=== PATIENT | female | born 1985 | race Caucasian/White ===

== ENCOUNTER 2017-05-28 19:08 | Inpatient (IN) | payer BC ==
[2017-05-28] MEDS ORDERED: Carboprost Tromethamine 250 MCG/1 ML Amp IM PRN (20:13)
[2017-05-28] MEDS ORDERED: Sodium Chloride 0.9% 2.5 ML Syringe FLUSH PRN (20:13)
[2017-05-28] MEDS ORDERED: Terbutaline 1 MG/ML SDV SUBCUT PRN (20:13)
[2017-05-28] MEDS ORDERED: Water For Irrigation,Sterile 1,000 ML Container IRR PRN (20:13)
[2017-05-28] MEDS ORDERED: Tranexamic Acid 1,000 MG in Sodium Chloride 0.9% 100 ML IV PRN (20:13)
[2017-05-28] MEDS ORDERED: Sodium Chloride 0.9% 10 ML Syringe FLUSH PRN (20:13)
[2017-05-28] MEDS ORDERED: Lidocaine 1% 50 ML MDV INJECT PRN (20:13)
[2017-05-28] MEDS ORDERED: Butorphanol 1 MG/ML SDV IVPUSH PRN (20:13)
[2017-05-28] MEDS ORDERED: Methylergonovine 0.2 MG/1 ML Amp IM PRN (20:13)
[2017-05-28] MEDS ORDERED: Misoprostol 200 MCG Tab PO PRN (20:13)
[2017-05-28] MEDS ORDERED: Oxytocin/0.9 % Sodium Chloride 30 UNIT/500 ML BAG IV SCH ×2 (20:15)
[2017-05-28] MEDS: Lactated Ringers 1,000 ML IV SCH (20:36)
[2017-05-28] MEDS: Misoprostol 25 MCG (1/4 of 100 MCG) Tab VAG PRN (20:41)
[2017-05-29] MEDS: Misoprostol 25 MCG (1/4 of 100 MCG) Tab VAG PRN (01:52)
[2017-05-29] MEDS: Nalbuphine 10 MG/1 ML Vial IVPUSH PRN ×2 (04:00→06:45)
[2017-05-29] MEDS: Lactated Ringers 1,000 ML IV SCH ×2 (08:24→09:12)
--- NOTE | 2017-05-29 08:52 | PCM.PREANE ---
Preanesthetic Assessment - Anesthesia/Transfusion/Family Hx Anesthesia History: Prior Anesthesia Without Reaction Family History of Anesthesia Reaction: No Transfusion History: No Prior Transfusion(s) - Physical Assessment Height: 1.6 m Weight: 97.069 kg ASA Class: 1 - Lab Values: Laboratory Last Values WBC 10.90 K/uL (4.0-11.0) 05/28/17 20:25 RBC 4.27 M/uL (4.30-5.90) L 05/28/17 20:25 Hgb 13.0 g/dL (12.0-16.0) 05/28/17 20:25 Hct 38.5 % (36.0-46.0) 05/28/17 20:25 MCV 90.2 fL (80.0-98.0) 05/28/17 20:25 MCH 30.4 pg (27.0-32.0) 05/28/17 20:25 MCHC 33.8 g/dL (31.0-37.0) 05/28/17 20:25 RDW Std Deviation 47.5 fl (28.0-62.0) 05/28/17 20:25 RDW Coeff of Rasheed 15 % (11.0-15.0) 05/28/17 20:25 Plt Count 223 K/uL (150-400) 05/28/17 20:25 MPV 9.50 fL (7.40-12.00) 05/28/17 20:25 Nucleated RBC % 0.0 /100WBC 05/28/17 20:25 Nucleated RBCs # 0 K/uL 05/28/17 20:25 Blood Type A POSITIVE 05/28/17 20:25 Antibody Screen NEGATIVE 05/28/17 20:25 - Allergies Allergies/Adverse Reactions: Allergies Allergy/AdvReac Type Severity Reaction Status Date / Time acetaminophen [From Tylenol] Allergy Difficulty Verified 05/28/17 20:13 Breathing - Acknowledgements Anesthesia Type Planned: Epidural Pt an Appropriate Candidate for the Planned Anesthesia: Yes Alternatives and Risks of Anesthesia Discussed w Pt/Guardian: Yes Pt/Guardian Understands and Agrees with Anesthesia Plan: Yes 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: Dermatologic History: Reports: Other (See Below) Other Dermatologic History: fatty tumor removal on left shoulder - Past Surgical History HEENT Surgical History: Reports: Tonsillectomy, Other (See Below) Other HEENT Surgeries/Procedures: wisdom tooth extraction - SUBSTANCE USE Smoking Status *Q: Never Smoker Second Hand Smoke Exposure: No Days Per Week of Alcohol Use: 1 Number of Drinks Per Day: 1 Total Drinks Per Week: 1 Recreational Drug Use History: No - CURRENT (IN HOUSE) MEDS Current Meds: Current Medications Butorphanol Tartrate (Stadol) 1 mg IVPUSH ASDIRECTED PRN PRN Reason: Pain Carboprost Tromethamine (Hemabate Ds) 250 mcg IM ASDIRECTED PRN PRN Reason: Post Hemorrhage Lactated Ringer's (Ringers, Lactated) 1,000 mls @ 150 mls/hr IV ASDIRECTED MATILDE Last Admin: 05/29/17 08:24 Dose: 150 mls/hr Oxytocin/Sodium Chloride (Oxytocin 30 Unit/500 Ml-Ns) 30 unit in 500 mls @ 999 mls/hr IV ASDIRECTED MATILDE Oxytocin/Sodium Chloride (Oxytocin 30 Unit/500 Ml-Ns) 30 unit in 500 mls @ 2 mls/hr IV TITRATE MATILDE; Protocol Tranexamic Acid 1,000 mg/ (Sodium Chloride) 110 mls @ 660 mls/hr IV ONETIME PRN PRN Reason: Bleeding Lidocaine HCl (Xylocaine 1%) 50 ml INJECT .ONCE PRN PRN Reason: Laceration repair Methylergonovine Maleate (Methergine) 0.2 mg IM ASDIRECTED PRN PRN Reason: Post Hemorrhage Misoprostol (Cytotec) 200 mcg PO .ONCE PRN PRN Reason: Post Hemorrhage Misoprostol (Cytotec) 25 mcg VAG Q4H PRN PRN Reason: Cervical Ripening Last Admin: 05/29/17 01:52 Dose: 25 mcg Nalbuphine HCl (Nubain) 10 mg IVPUSH ASDIRECTED PRN PRN Reason: Pain (severe 7-10) Last Admin: 05/29/17 06:45 Dose: 10 mg Sodium Chloride (Saline Flush) 10 ml FLUSH ASDIRECTED PRN PRN Reason: Keep Vein Open Sodium Chloride (Saline Flush) 2.5 ml FLUSH ASDIRECTED PRN PRN Reason: Keep Vein Open Sterile Water (Sterile Water For Irrigation) 1,000 ml IRR ASDIRECTED PRN PRN Reason: delivery Terbutaline Sulfate (Brethine) 0.25 mg SUBCUT ASDIRECTED PRN PRN Reason: Tacysystole Discontinued Medications Fentanyl/Bupivacaine HCl (Cyuycdko-Vfbhs-Ux 2 Mcg/Ml-0.125%) Confirm Administered Dose 100 mls @ as [facility] Stop: 05/29/17 08:34
--- NOTE | 2017-05-29 08:55 | PCM.PRNOTE ---
- Free Text/Narrative Note: Anes Note Patient requests epidural for L&D. Risks and methods were discussed. Sitting position. Bet prep X3 to lumbar area. Sterile drape applied. Level #-L4 midline approach. Local 3 cc 1% lido. 17 X 3 7/8 tuohy needle. Epidural space easily achieved single attempt using BENJAMIN technique. Cath threaded 3 cm with ease. Sterile dressing applied. Test dose negative. Loading dose 10 cc pump solution bolus in slow increments. Pump started at 8 cc hr with 6 cc q 20 min prn bolus. Patient reports excellent T10 level of analgesia. Tolerated Well. Time with patient [id number] Thank you Daron Mclaughlin CRNA
[2017-05-29] MEDS ORDERED: Bisacodyl 10 MG Supp RECTAL PRN (15:13)
[2017-05-29] MEDS ORDERED: Docusate Sodium 100 MG Cap PO PRN (15:13)
[2017-05-29] MEDS ORDERED: Methylergonovine 0.2 MG/1 ML Amp IM PRN (15:13)
[2017-05-29] MEDS ORDERED: Benzocaine/Menthol 20%-0.5% Spray 78 GM Cannister TOP PRN (15:13)
[2017-05-29] MEDS ORDERED: Ibuprofen 400 MG Tab PO PRN (15:13)
[2017-05-29] MEDS ORDERED: Lanolin 100% Cream 7 GM Tube TOP PRN (15:13)
[2017-05-29] MEDS: Ibuprofen 800 MG Tab PO PRN (19:08)
[2017-05-29] MEDS: Witch Hazel Medicated Pads 40/Jar TOP PRN (19:10)
[2017-05-29] MEDS: oxyCODONE 5 MG Tab PO PRN (22:44)
--- NOTE | 2017-05-29 23:39 | OR ---
SURGEON: Diane Dueñas M.D. DATE OF PROCEDURE: 05/29/2017 PREOPERATIVE DIAGNOSES: 1. A 41 and 2/7th week intrauterine . 2. Postdates induction of labor. POSTOPERATIVE DIAGNOSES: 1. A 41 and 2/7th week intrauterine . 2. Postdates induction of labor. PROCEDURE PERFORMED: Cytotec induction of labor, term spontaneous vaginal delivery, and repair of second-degree laceration. OUTSIDE CUTTER HAND: Lyric Sandhu MS4. ANESTHESIA: Epidural. ESTIMATED BLOOD LOSS: Less than 300 mL. FINDINGS: Live born female, score 7 and 8, weighing 3870 g. Placenta spontaneous, Schultze intact with 3 vessels. Extensive calcifications were noted. Second- degree perineal laceration repaired. BRIEF HISTORY: This is a 31-year-old female. She is G1, P0. She presents at 41 and 2/7th weeks' gestation for induction of labor. She received 2 doses of Cytotec and approximately 6 hours after the 2nd dose of Cytotec she was 3 to 4 cm dilated. Artificial rupture of membranes was performed with clear fluid noted. Category 1 heart tones were continued throughout labor. When she was 5-cm dilated, she received an epidural for pain control and she did progress to complete. DESCRIPTION OF PROCEDURE: With the patient in dorsal lithotomy position, the patient pushed over 1.5 hour time period to a 5+ station, at which time, the head was delivered spontaneously and atraumatically over the perineum with support with subsequent delivery of the infant's shoulders and body without any difficulty. The infant was handed to the mother in the presence of the nurse attending delivery. The was a liveborn female, score 7 and 8, weighing 3870 g. After the cord had ceased to pulsate, it was doubly clamped and cut. Cord blood was collected for cord ABGs as well as routine cord blood sampling. Pitocin was initiated after delivery of the to assist with delivery of the placenta, which was delivered spontaneously. Schultze intact with 3 vessels. Upon inspection of the pelvis and perineum, there were no periurethral, vaginal sidewall, cervical, or rectal lacerations. There was a second-degree perineal laceration that was repaired using 3 [id number] sutures of 3-0 Vicryl for the deep perineal tissue, a running lock suture of the Vicryl for the vaginal mucosa, another running suture of the Vicryl for the remaining perineum, and a subcuticular suture for the skin. Final sponge, needle, and instrument counts were reported as correct. There were no known complications. The patient was transferred to recovery in good condition. FARZANEH NATARAJAN /[id number]
[2017-05-30] MEDS: Ibuprofen 800 MG Tab PO PRN ×3 (04:58→21:43)
--- NOTE | 2017-05-30 07:50 | PCM.PNPP ---
<Arcelia Diallo - Last Filed: 05/30/17 07:45> - General Info Date of Service: 05/30/17 Functional Status: Reports: Pain Controlled, Tolerating Diet, Ambulating, Urinating - Review of Systems General: Denies: Fever, Weakness, Fatigue Pulmonary: Denies: Shortness of Breath, Pleuritic Chest Pain, Cough Cardiovascular: Denies: Chest Pain, Palpitations, Dyspnea on Exertion Gastrointestinal: Denies: Abdominal Pain Genitourinary: Denies: Dysuria Psychiatric: Reports: No Symptoms - General Info Date of Service: 05/30/17 - Patient Data Vital Signs - Most Recent: Last Vital Signs Temp 36.7 C 05/30/17 05:06 Pulse 89 05/30/17 05:06 Resp 16 05/30/17 05:06 BP 106/64 05/30/17 05:06 Pulse Ox 97 05/30/17 05:06 Weight - Most Recent: 97.069 kg Lab Results - Last 24 Hours: Laboratory Results - last 24 hr 05/29/17 05/30/17 Range/Units 14:46 05:10 Hgb 11.0 L (12.0-16.0) g/dL Hct 32.8 L (36.0-46.0) % Cord ABG pH 7.160 L (7.18-7.38) Cord ABG Base Excess -7 (-10--2) Cord VBG pH 7.265 (7.25-7.45) Cord VBG Base Excess -6 (-10--2) Med Orders - Current: Current Medications Benzocaine/Menthol (Dermoplast Pain Relief 20%-0.5% [place]) 78 gm TOP ASDIRECTED PRN PRN Reason: Perineal Comfort Measure Last Admin: 05/29/17 19:10 Dose: 1 cartridge Bisacodyl (Dulcolax) 10 mg RECTAL .ONCE PRN PRN Reason: Constipation Docusate Sodium (Colace) 100 mg PO BID PRN PRN Reason: Constipation Emollient Ointment (Lansinoh Hpa) 0 gm TOP ASDIRECTED PRN PRN Reason: Sore Nipples Ibuprofen (Motrin) 400 mg PO Q4H PRN PRN Reason: Pain Ibuprofen (Motrin) 800 mg PO Q6H PRN PRN Reason: Pain Last Admin: 05/30/17 04:58 Dose: 800 mg Methylergonovine Maleate (Methergine) 0.2 mg IM .ONCE PRN PRN Reason: Excessive Vaginal Bleeding Oxycodone HCl (Oxycodone) 5 mg PO Q2H PRN PRN Reason: Pain Last Admin: 05/29/17 22:44 Dose: 5 mg Witch Li (Tucks) 1 pad TOP ASDIRECTED PRN PRN Reason: comfort care Last Admin: 05/29/17 19:10 Dose: 1 tub Discontinued Medications Butorphanol Tartrate (Stadol) 1 mg IVPUSH ASDIRECTED PRN PRN Reason: Pain Carboprost Tromethamine (Hemabate Ds) 250 mcg IM ASDIRECTED PRN PRN Reason: Post Hemorrhage Lactated Ringer's (Ringers, Lactated) 1,000 mls @ 150 mls/hr IV ASDIRECTED MATILDE Last Admin: 05/29/17 09:12 Dose: 150 mls/hr Oxytocin/Sodium Chloride (Oxytocin 30 Unit/500 Ml-Ns) 30 unit in 500 mls @ 999 mls/hr IV ASDIRECTED MATILDE Oxytocin/Sodium Chloride (Oxytocin 30 Unit/500 Ml-Ns) 30 unit in 500 mls @ 2 mls/hr IV TITRATE MATILDE; Protocol Tranexamic Acid 1,000 mg/ (Sodium Chloride) 110 mls @ 660 mls/hr IV ONETIME PRN PRN Reason: Bleeding Fentanyl/Bupivacaine HCl (Osmxmxbx-Fgelm-Ck 2 Mcg/Ml-0.125%) Confirm Administered Dose 100 mls @ as directed EP .[facility]-MED ONE Stop: 05/29/17 08:34 Lidocaine HCl (Xylocaine 1%) 50 ml INJECT .ONCE PRN PRN Reason: Laceration repair Methylergonovine Maleate (Methergine) 0.2 mg IM ASDIRECTED PRN PRN Reason: Post Hemorrhage Misoprostol (Cytotec) 200 mcg PO .ONCE PRN PRN Reason: Post Hemorrhage Misoprostol (Cytotec) 25 mcg VAG Q4H PRN PRN Reason: Cervical Ripening Last Admin: 05/29/17 01:52 Dose: 25 mcg Nalbuphine HCl (Nubain) 10 mg IVPUSH ASDIRECTED PRN PRN Reason: Pain (severe 7-10) Last Admin: 05/29/17 06:45 Dose: 10 mg Sodium Chloride (Saline Flush) 10 ml FLUSH ASDIRECTED PRN PRN Reason: Keep Vein Open Sodium Chloride (Saline Flush) 2.5 ml FLUSH ASDIRECTED PRN PRN Reason: Keep Vein Open Sterile Water (Sterile Water For Irrigation) 1,000 ml IRR ASDIRECTED PRN PRN Reason: delivery Terbutaline Sulfate (Brethine) 0.25 mg SUBCUT ASDIRECTED PRN PRN Reason: Tacysystole - Infant Interaction Infant Disposition, : in Room with Family Infant Interaction: Holding Infant Feeding: Attempted ; Nursed Fair/Poor Support Person: - Recovery Exam Fundal Tone: Firm Fundal Level: 1 Fingerbreadths Below Umbilicus Fundal Placement: Midline Lochia Amount: Scant Lochia Color: Rubra/Red Bladder Status: Voiding Urinary Elimination: Voided - Exam Neck: Supple Lungs: Clear to Auscultation, Normal Respiratory Effort Cardiovascular: Regular Rate, Regular Rhythm GI/Abdominal Exam: Normal Bowel Sounds, No Organomegaly, No Mass Extremities: Normal Inspection, Non-Tender, Normal Capillary Refill, Pedal Edema (trace) Skin: Warm, Dry, Intact Psy/Mental Status: Alert - Problem List & Annotations (1) Vaginal delivery SNOMED Code(s): 227812814 Code(s): O80 - ENCOUNTER FOR FULL-TERM UNCOMPLICATED DELIVERY Status: Acute - Problem List Review Problem List Initiated/Reviewed/Updated: Yes - Assessment Assessment:: PPD #1 . Minimal pain and lochia. Work on breast feeding today. Discharge home this afternoon. - Plan Plan:: Discharge instructions reviewed. Pelvic rest for 6 weeks. Continue PNV while breast feeding. Rx for oxycodone to use as needed for pain. Instructed patient to call if she develops fever greater than 101 or bleeding through a large pad an hour. F/U with [facility] in 6 weeks. <Diane Dueñas - Last Filed: 06/02/17 07:54> - Patient Data Vital Signs - Most Recent: Last Vital Signs Temp 36.6 C 05/31/17 07:00 Pulse 88 05/31/17 07:00 Resp 15 05/31/17 07:00 BP 128/74 05/31/17 07:00 Pulse Ox 97 05/31/17 07:00 Med Orders - Current: Current Medications Discontinued Medications Benzocaine/Menthol (Dermoplast Pain Relief 20%-0.5% Collins) 78 gm TOP ASDIRECTED PRN PRN Reason: Perineal Comfort Measure Last Admin: 05/29/17 19:10 Dose: 1 cartridge Bisacodyl (Dulcolax) 10 mg RECTAL .ONCE PRN PRN Reason: Constipation Butorphanol Tartrate (Stadol) 1 mg IVPUSH ASDIRECTED PRN PRN Reason: Pain Carboprost Tromethamine (Hemabate Ds) 250 mcg IM ASDIRECTED PRN PRN Reason: Post Hemorrhage Docusate Sodium (Colace) 100 mg PO BID PRN PRN Reason: Constipation Emollient Ointment (Lansinoh Hpa) 0 gm TOP ASDIRECTED PRN PRN Reason: Sore Nipples Lactated Ringer's (Ringers, Lactated) 1,000 mls @ 150 mls/hr IV ASDIRECTED MATILDE Last Admin: 05/29/17 09:12 Dose: 150 mls/hr Oxytocin/Sodium Chloride (Oxytocin 30 Unit/500 Ml-Ns) 30 unit in 500 mls @ 999 mls/hr IV ASDIRECTED MATILDE Oxytocin/Sodium Chloride (Oxytocin 30 Unit/500 Ml-Ns) 30 unit in 500 mls @ 2 mls/hr IV TITRATE MATILDE; Protocol Tranexamic Acid 1,000 mg/ (Sodium Chloride) 110 mls @ 660 mls/hr IV ONETIME PRN PRN Reason: Bleeding Fentanyl/Bupivacaine HCl (Tjqictqp-Tbymi-Td 2 Mcg/Ml-0.125%) Confirm Administered Dose 100 mls @ as directed EP .STK-MED ONE Stop: 05/29/17 08:34 Ibuprofen (Motrin) 400 mg PO Q4H PRN PRN Reason: Pain Ibuprofen (Motrin) 800 mg PO Q6H PRN PRN Reason: Pain Last Admin: 05/30/17 21:43 Dose: 800 mg Lidocaine HCl (Xylocaine 1%) 50 ml INJECT .ONCE PRN PRN Reason: Laceration repair Methylergonovine Maleate (Methergine) 0.2 mg IM ASDIRECTED PRN PRN Reason: Post Hemorrhage Methylergonovine Maleate (Methergine) 0.2 mg IM .ONCE PRN PRN Reason: Excessive Vaginal Bleeding Misoprostol (Cytotec) 200 mcg PO .ONCE PRN PRN Reason: Post Hemorrhage Misoprostol (Cytotec) 25 mcg VAG Q4H PRN PRN Reason: Cervical Ripening Last Admin: 05/29/17 01:52 Dose: 25 mcg Nalbuphine HCl (Nubain) 10 mg IVPUSH ASDIRECTED PRN PRN Reason: Pain (severe 7-10) Last Admin: 05/29/17 06:45 Dose: 10 mg Oxycodone HCl (Oxycodone) 5 mg PO Q2H PRN PRN Reason: Pain Last Admin: 05/30/17 21:44 Dose: 5 mg Sodium Chloride (Saline Flush) 10 ml FLUSH ASDIRECTED PRN PRN Reason: Keep Vein Open Sodium Chloride (Saline Flush) 2.5 ml FLUSH ASDIRECTED PRN PRN Reason: Keep Vein Open Sterile Water (Sterile Water For Irrigation) 1,000 ml IRR ASDIRECTED PRN PRN Reason: delivery Terbutaline Sulfate (Brethine) 0.25 mg SUBCUT ASDIRECTED PRN PRN Reason: Tacysystole Witch Li (Tucks) 1 pad TOP ASDIRECTED PRN PRN Reason: comfort care Last Admin: 05/30/17 15:19 Dose: 1 tub - Problem List Review Problem List Initiated/Reviewed/Updated: Yes - Plan Plan:: Patient was seen and examined and I agree with above.
[2017-05-30] MEDS: oxyCODONE 5 MG Tab PO PRN ×2 (07:51→21:44)
--- NOTE | 2017-05-30 07:51 | PCM48HPAN ---
Post Anesthesia Note - EVALUATION WITHIN 48HRS OF ANESTHETIC Vital Signs in Normal Range: Yes Patient Participated in Evaluation: Yes Respiratory Function Stable: Yes Airway Patent: Yes Cardiovascular Function Stable: Yes Hydration Status Stable: Yes Pain Control Satisfactory: Yes Nausea and Vomiting Control Satisfactory: Yes Mental Status Recovered: Yes Resp Rate: 16
[2017-05-30] MEDS: Witch Hazel Medicated Pads 40/Jar TOP PRN (15:19)
--- NOTE | 2017-05-31 06:42 | PCM.PNPP ---
<Lizzy Pinon - Last Filed: 05/31/17 06:37> - General Info Date of Service: 05/31/17 Admission Dx/Problem (Free Text): 41 2/7 postdates induction with . Subjective Update: Patient is doing well this morning. Pain is well controlled with medication. Tolerating diet with no n/v. Ambulating. Urinating. No bowel movement, but flatus present. Lochia WNL. . Anticipate discharge today. Functional Status: Reports: Pain Controlled, Tolerating Diet, Ambulating, Urinating - Review of Systems General: Denies: Fever, Chills Pulmonary: Denies: Shortness of Breath, Pleuritic Chest Pain Cardiovascular: Reports: Edema. Denies: Chest Pain Gastrointestinal: Reports: Flatus. Denies: Abdominal Pain, Nausea, Vomiting - Patient Data Vital Signs - Most Recent: Last Vital Signs Temp 36.3 C 05/31/17 04:53 Pulse 78 05/31/17 04:53 Resp 18 05/31/17 04:53 BP 107/73 05/31/17 04:53 Pulse Ox 97 05/31/17 04:53 Weight - Most Recent: 214 lb Lab Results - Last 24 Hours: Hemoglobin on 05/30 was 11. Med Orders - Current: Current Medications Benzocaine/Menthol (Dermoplast Pain Relief 20%-0.5% [place]) 78 gm TOP ASDIRECTED PRN PRN Reason: Perineal Comfort Measure Last Admin: 05/29/17 19:10 Dose: 1 cartridge Bisacodyl (Dulcolax) 10 mg RECTAL .ONCE PRN PRN Reason: Constipation Docusate Sodium (Colace) 100 mg PO BID PRN PRN Reason: Constipation Emollient Ointment (Lansinoh Hpa) 0 gm TOP ASDIRECTED PRN PRN Reason: Sore Nipples Ibuprofen (Motrin) 400 mg PO Q4H PRN PRN Reason: Pain Ibuprofen (Motrin) 800 mg PO Q6H PRN PRN Reason: Pain Last Admin: 05/30/17 21:43 Dose: 800 mg Methylergonovine Maleate (Methergine) 0.2 mg IM .ONCE PRN PRN Reason: Excessive Vaginal Bleeding Oxycodone HCl (Oxycodone) 5 mg PO Q2H PRN PRN Reason: Pain Last Admin: 05/30/17 21:44 Dose: 5 mg Witch Li (Tucks) 1 pad TOP ASDIRECTED PRN PRN Reason: comfort care Last Admin: 05/30/17 15:19 Dose: 1 tub Discontinued Medications Butorphanol Tartrate (Stadol) 1 mg IVPUSH ASDIRECTED PRN PRN Reason: Pain Carboprost Tromethamine (Hemabate Ds) 250 mcg IM ASDIRECTED PRN PRN Reason: Post Hemorrhage Lactated Ringer's (Ringers, Lactated) 1,000 mls @ 150 mls/hr IV ASDIRECTED MATILDE Last Admin: 05/29/17 09:12 Dose: 150 mls/hr Oxytocin/Sodium Chloride (Oxytocin 30 Unit/500 Ml-Ns) 30 unit in 500 mls @ 999 mls/hr IV ASDIRECTED MATILDE Oxytocin/Sodium Chloride (Oxytocin 30 Unit/500 Ml-Ns) 30 unit in 500 mls @ 2 mls/hr IV TITRATE MATILDE; Protocol Tranexamic Acid 1,000 mg/ (Sodium Chloride) 110 mls @ 660 mls/hr IV ONETIME PRN PRN Reason: Bleeding Fentanyl/Bupivacaine HCl (Ejucgzif-Cezwf-Xu 2 Mcg/Ml-0.125%) Confirm Administered Dose 100 mls @ as directed EP .[facility]-MED ONE Stop: 05/29/17 08:34 Lidocaine HCl (Xylocaine 1%) 50 ml INJECT .ONCE PRN PRN Reason: Laceration repair Methylergonovine Maleate (Methergine) 0.2 mg IM ASDIRECTED PRN PRN Reason: Post Hemorrhage Misoprostol (Cytotec) 200 mcg PO .ONCE PRN PRN Reason: Post Hemorrhage Misoprostol (Cytotec) 25 mcg VAG Q4H PRN PRN Reason: Cervical Ripening Last Admin: 05/29/17 01:52 Dose: 25 mcg Nalbuphine HCl (Nubain) 10 mg IVPUSH ASDIRECTED PRN PRN Reason: Pain (severe 7-10) Last Admin: 05/29/17 06:45 Dose: 10 mg Sodium Chloride (Saline Flush) 10 ml FLUSH ASDIRECTED PRN PRN Reason: Keep Vein Open Sodium Chloride (Saline Flush) 2.5 ml FLUSH ASDIRECTED PRN PRN Reason: Keep Vein Open Sterile Water (Sterile Water For Irrigation) 1,000 ml IRR ASDIRECTED PRN PRN Reason: delivery Terbutaline Sulfate (Brethine) 0.25 mg SUBCUT ASDIRECTED PRN PRN Reason: Tacysystole - Infant Interaction Infant Disposition, : [place] in Room with Family Infant Interaction: Holding Infant Feeding: Attempted ; Nursed Fair/Poor Other Infant Feeding: continuing to improve. - Recovery Exam Fundal Tone: Firm Fundal Level: 2 Fingerbreadths Below Umbilicus Fundal Placement: Midline Lochia Amount: Scant Lochia Color: Rubra/Red Perineum Description: Other (see below) Other Perinuem Description: 2nd degree lac Episiotomy/Laceration: Approximated Bladder Status: Voiding Urinary Elimination: Voided - Exam General: Alert, Oriented, No Acute Distress Neck: Supple Lungs: Clear to Auscultation, Normal Respiratory Effort Cardiovascular: Regular Rate, Regular Rhythm, No Murmurs GI/Abdominal Exam: Soft, Non-Tender Extremities: Pedal Edema Skin: Warm, Dry Psy/Mental Status: Alert - Assessment Assessment:: PPD #2 . Minimal pain and lochia. Discharge home today. - Plan Plan:: Discharge instructions reviewed. Pelvic rest for 6 weeks. Continue PNV while breast feeding. Rx for oxycodone to use as needed for pain. Instructed patient to call if she develops fever greater than 101 or bleeding through a large pad an hour. F/U with [facility] in 6 weeks. <Joan Newberry - Last Filed: 05/31/17 07:07> - Patient Data Vital Signs - Most Recent: Last Vital Signs Temp 36.3 C 05/31/17 04:53 Pulse 78 05/31/17 04:53 Resp 18 05/31/17 04:53 BP 107/73 05/31/17 04:53 Pulse Ox 97 05/31/17 04:53 Med Orders - Current: Current Medications Benzocaine/Menthol (Dermoplast Pain Relief 20%-0.5% [place]) 78 gm TOP ASDIRECTED PRN PRN Reason: Perineal Comfort Measure Last Admin: 05/29/17 19:10 Dose: 1 cartridge Bisacodyl (Dulcolax) 10 mg RECTAL .ONCE PRN PRN Reason: Constipation Docusate Sodium (Colace) 100 mg PO BID PRN PRN Reason: Constipation Emollient Ointment (Lansinoh Hpa) 0 gm TOP ASDIRECTED PRN PRN Reason: Sore Nipples Ibuprofen (Motrin) 400 mg PO Q4H PRN PRN Reason: Pain Ibuprofen (Motrin) 800 mg PO Q6H PRN PRN Reason: Pain Last Admin: 05/30/17 21:43 Dose: 800 mg Methylergonovine Maleate (Methergine) 0.2 mg IM .ONCE PRN PRN Reason: Excessive Vaginal Bleeding Oxycodone HCl (Oxycodone) 5 mg PO Q2H PRN PRN Reason: Pain Last Admin: 05/30/17 21:44 Dose: 5 mg Witch Li (Tucks) 1 pad TOP ASDIRECTED PRN PRN Reason: comfort care Last Admin: 05/30/17 15:19 Dose: 1 tub Discontinued Medications Butorphanol Tartrate (Stadol) 1 mg IVPUSH ASDIRECTED PRN PRN Reason: Pain Carboprost Tromethamine (Hemabate Ds) 250 mcg IM ASDIRECTED PRN PRN Reason: Post Hemorrhage Lactated Ringer's (Ringers, Lactated) 1,000 mls @ 150 mls/hr IV ASDIRECTED MATILDE Last Admin: 05/29/17 09:12 Dose: 150 mls/hr Oxytocin/Sodium Chloride (Oxytocin 30 Unit/500 Ml-Ns) 30 unit in 500 mls @ 999 mls/hr IV ASDIRECTED MATILDE Oxytocin/Sodium Chloride (Oxytocin 30 Unit/500 Ml-Ns) 30 unit in 500 mls @ 2 mls/hr IV TITRATE MATILDE; Protocol Tranexamic Acid 1,000 mg/ (Sodium Chloride) 110 mls @ 660 mls/hr IV ONETIME PRN PRN Reason: Bleeding Fentanyl/Bupivacaine HCl (Neopgjct-Vpcun-Ei 2 Mcg/Ml-0.125%) Confirm Administered Dose 100 mls @ as directed EP .[facility]-MED ONE Stop: 05/29/17 08:34 Lidocaine HCl (Xylocaine 1%) 50 ml INJECT .ONCE PRN PRN Reason: Laceration repair Methylergonovine Maleate (Methergine) 0.2 mg IM ASDIRECTED PRN PRN Reason: Post Hemorrhage Misoprostol (Cytotec) 200 mcg PO .ONCE PRN PRN Reason: Post Hemorrhage Misoprostol (Cytotec) 25 mcg VAG Q4H PRN PRN Reason: Cervical Ripening Last Admin: 05/29/17 01:52 Dose: 25 mcg Nalbuphine HCl (Nubain) 10 mg IVPUSH ASDIRECTED PRN PRN Reason: Pain (severe 7-10) Last Admin: 05/29/17 06:45 Dose: 10 mg Sodium Chloride (Saline Flush) 10 ml FLUSH ASDIRECTED PRN PRN Reason: Keep Vein Open Sodium Chloride (Saline Flush) 2.5 ml FLUSH ASDIRECTED PRN PRN Reason: Keep Vein Open Sterile Water (Sterile Water For Irrigation) 1,000 ml IRR ASDIRECTED PRN PRN Reason: delivery Terbutaline Sulfate (Brethine) 0.25 mg SUBCUT ASDIRECTED PRN PRN Reason: Tacysystole - Exam Extremities: Non-Tender - Problem List Review Problem List Initiated/Reviewed/Updated: Yes - Assessment Assessment:: Evaluated patient independently and agree with above - Plan Plan:: Agree with above. Reviewed symptoms of blues vs depression. Discharge home today
== END 2017-05-31 10:10 | disposition home or self-care (01) | DRG 560 ==
LOC: MW.OBCHECK 19:08 → MW.OB 19:11 → MW.OBCHECK 20:13 → MW.OB 05-29 08:47 → OBSVTOIN 05-29 14:46 → MW.OB 05-29 17:55
PROVIDERS: ADMIT Obstetrics & Gynecology; ATTEND Obstetrics & Gynecology
PROC: 10E0XZZ Delivery of Products of Conception, External Approach (ICD-10-PCS; principal; 2017-05-29)
PROC: 3E0P7VZ Introduction of Hormone into Female Reproductive, Via Natural or Artificial Opening (ICD-10-PCS; 2017-05-29)
PROC: 3E033VJ Introduction of Other Hormone into Peripheral Vein, Percutaneous Approach (ICD-10-PCS; 2017-05-29)
PROC: 0KQM0ZZ Repair Perineum Muscle, Open Approach (ICD-10-PCS; 2017-05-29)
PROC: 10907ZC Drainage of Amniotic Fluid, Therapeutic from Products of Conception, Via Natural or Artificial Opening (ICD-10-PCS; 2017-05-29)
DX: O48.0 Post-term pregnancy (principal); O70.1 Second degree perineal laceration during delivery; Z3A.41 41 weeks gestation of pregnancy; Z37.0 Single live birth
CPT/HCPCS: 36415; 59025; 59409; 82803; 85014; 85018; 85027; 86850; 86900; 86901; A9270-GY; J2300; J7120

== ENCOUNTER 2019-08-18 | Inpatient (IN) | payer BC ==
[2019-08-18] MEDS ORDERED: Misoprostol 200 MCG Tab PO PRN (00:15)
[2019-08-18] MEDS ORDERED: Butorphanol 1 MG/ML SDV IVPUSH PRN (00:15)
[2019-08-18] MEDS ORDERED: Nalbuphine 10 MG/1 ML Vial IVPUSH PRN (00:15)
[2019-08-18] MEDS ORDERED: Lidocaine 1% 50 ML MDV INJECT PRN (00:15)
[2019-08-18] MEDS ORDERED: Tranexamic Acid 1,000 MG in Sodium Chloride 0.9% 100 ML IV PRN ×2 (00:15→18:47)
[2019-08-18] MEDS ORDERED: Water For Irrigation,Sterile 1,000 ML Container IRR PRN (00:15)
[2019-08-18] MEDS ORDERED: Sodium Chloride 0.9% 10 ML SDV IV PRN (00:15)
[2019-08-18] MEDS ORDERED: Sodium Chloride 0.9% 2.5 ML Syringe FLUSH PRN (00:15)
[2019-08-18] MEDS ORDERED: Carboprost Tromethamine 250 MCG/1 ML Amp IM PRN (00:15)
[2019-08-18] MEDS ORDERED: Oxytocin/0.9 % Sodium Chloride 30 UNIT/500 ML BAG IV SCH ×2 (00:15→00:30)
[2019-08-18] MEDS ORDERED: Sodium Chloride 0.9% 10 ML Syringe FLUSH PRN (00:15)
[2019-08-18] MEDS ORDERED: Methylergonovine 0.2 MG/1 ML Amp IM PRN ×2 (00:15→18:47)
[2019-08-18] MEDS ORDERED: Misoprostol 25 MCG (1/4 of 100 MCG) Tab VAG PRN (00:17)
[2019-08-18] MEDS ORDERED: Terbutaline 1 MG/ML SDV SUBCUT PRN (00:17)
[2019-08-18] MEDS: Misoprostol 25 MCG (1/4 of 100 MCG) Tab VAG PRN ×2 (00:55→06:59)
[2019-08-18] MEDS ORDERED: Oxytocin/0.9 % Sodium Chloride 30 UNIT/500 ML BAG ONE (06:13)
[2019-08-18] MEDS: Lactated Ringers 1,000 ML IV SCH ×2 (11:07→17:10)
[2019-08-18] MEDS ORDERED: Bupivicaine/fentaNYL/NS 250 ML ONE (16:01)
--- NOTE | 2019-08-18 16:30 | PCM.PREANE ---
Preanesthetic Assessment - Anesthesia/Transfusion/Family Hx Anesthesia History: Prior Anesthesia Without Reaction Family History of Anesthesia Reaction: No Transfusion History: No Prior Transfusion(s) - Review of Systems General: No Symptoms Pulmonary: No Symptoms Cardiovascular: No Symptoms Gastrointestinal: No Symptoms Neurological: No Symptoms Other: Reports: None (Denies any personal or family hx of bleeding or clotting problems) - Physical Assessment Height: 1.63 m Weight: 94.347 kg ASA Class: 2 Mental Status: Alert & Oriented x3 Airway Class: Mallampati = 3 Dentition: Reports: Normal Dentition ROM/Head Extension: Full - Lab Values: Laboratory Last Values WBC 8.83 K/uL (4.0-11.0) 08/18/19 00:35 RBC 4.10 M/uL (4.30-5.90) L 08/18/19 00:35 Hgb 12.2 g/dL (12.0-16.0) 08/18/19 00:35 Hct 37.4 % (36.0-46.0) 08/18/19 00:35 MCV 91.2 fL (80.0-98.0) 08/18/19 00:35 MCH 29.8 pg (27.0-32.0) 08/18/19 00:35 MCHC 32.6 g/dL (31.0-37.0) 08/18/19 00:35 RDW Std Deviation 44.7 fl (28.0-62.0) 08/18/19 00:35 RDW Coeff of Rasheed 14 % (11.0-15.0) 08/18/19 00:35 Plt Count 224 K/uL (150-400) 08/18/19 00:35 MPV 9.90 fL (7.40-12.00) 08/18/19 00:35 SARS-CoV-2 RNA (RT-PCR) NEGATIVE (NEGATIVE) 08/18/19 00:40 Blood Type A POSITIVE 08/18/19 00:35 Antibody Screen NEGATIVE 08/18/19 00:35 - Allergies Allergies/Adverse Reactions: Allergies Allergy/AdvReac Type Severity Reaction Status Date / Time acetaminophen [From Tylenol] Allergy Difficulty Verified 08/18/19 00:14 Breathing - Acknowledgements Anesthesia Type Planned: Epidural Pt an Appropriate Candidate for the Planned Anesthesia: Yes Alternatives and Risks of Anesthesia Discussed w Pt/Guardian: Yes Pt/Guardian Understands and Agrees with Anesthesia Plan: Yes PreAnesthesia Questionnaire - Past Health History Medical/Surgical History: Denies Medical/Surgical History 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: Dermatologic History: Reports: Other (See Below) Other Dermatologic History: fatty tumor removal on left shoulder - Past Surgical History HEENT Surgical History: Reports: Tonsillectomy, Other (See Below) Other HEENT Surgeries/Procedures: wisdom tooth extraction - SUBSTANCE USE Smoking Status *Q: Never Smoker Recreational Drug Use History: No - HOME MEDS Home Medications: Home Meds oxyCODONE 5 mg PO Q2H PRN #20 tablet 05/30/17 [Rx] - CURRENT (IN HOUSE) MEDS Current Meds: Current Medications Butorphanol Tartrate (Stadol) 1 mg IVPUSH Q1H PRN PRN Reason: Pain Carboprost Tromethamine (Hemabate Ds) 250 mcg IM ASDIRECTED PRN PRN Reason: Post Hemorrhage Oxytocin/Sodium Chloride (Oxytocin 30 Unit/500 Ml-Ns) 30 unit in 500 mls @ 500 mls/hr IV TITRATE MATILDE Tranexamic Acid 1,000 mg/ (Sodium Chloride) 110 mls @ 660 mls/hr IV ONETIME PRN PRN Reason: Bleeding Lactated Ringer's (Ringers, Lactated) 1,000 mls @ 150 mls/hr IV ASDIRECTED MATILDE Last Infusion: 08/18/19 15:49 Dose: 999 mls/hr Documented by: Oxytocin/Sodium Chloride (Oxytocin 30 Unit/500 Ml-Ns) 30 unit in 500 mls @ 2 mls/hr IV TITRATE MATILDE; Protocol Last Titration: 08/18/19 14:14 Dose: 4 munits/min, 4 mls/hr Documented by: Lidocaine HCl (Xylocaine 1%) 50 ml INJECT ONETIME PRN PRN Reason: Laceration repair Methylergonovine Maleate (Methergine) 0.2 mg IM ASDIRECTED PRN PRN Reason: Post Hemorrhage Misoprostol (Cytotec) 200 mcg PO ONETIME PRN PRN Reason: Post Hemorrhage Misoprostol (Cytotec) 25 mcg VAG ONETIME PRN PRN Reason: Cervical Ripening Misoprostol (Cytotec) 25 mcg VAG Q6H PRN PRN Reason: Cervical Ripening Last Admin: 08/18/19 06:59 Dose: 25 mcg Documented by: Nalbuphine HCl (Nubain) 10 mg IVPUSH Q1H PRN PRN Reason: Pain (severe 7-10) Sodium Chloride (Saline Flush) 10 ml FLUSH ASDIRECTED PRN PRN Reason: Keep Vein Open Sodium Chloride (Saline Flush) 2.5 ml FLUSH ASDIRECTED PRN PRN Reason: Keep Vein Open Sodium Chloride (Normal Saline) 10 ml IV ASDIRECTED PRN PRN Reason: IV Use Sterile Water (Sterile Water For Irrigation) 1,000 ml IRR ASDIRECTED PRN PRN Reason: delivery Terbutaline Sulfate (Brethine) 0.25 mg SUBCUT ASDIRECTED PRN PRN Reason: Tacysystole Discontinued Medications Oxytocin/Sodium Chloride (Oxytocin 30 Unit/500 Ml-Ns) Confirm Administered Dose 30 unit in 500 mls @ as directed .ROUTE .STK-MED ONE Stop: 08/18/19 06:14 Fentanyl/Bupivacaine HCl (Fentanyl/Bupivacaine/Ns 2 Mcg-0.125% 250 Ml) Confirm Administered Dose 250 mls @ as directed .ROUTE .STK-MED ONE Stop: 08/18/19 16:02
[2019-08-18] MEDS ORDERED: ePHEDrine 50 MG/ML SDV ONE (16:46)
[2019-08-18] MEDS ORDERED: Oxytocin 10 Units/1 ML SDV ONE (18:11)
[2019-08-18] MEDS ORDERED: Ondansetron 4 MG/2 ML SDV ONE (18:12)
--- NOTE | 2019-08-18 18:46 | PCM.DEL ---
L & D Note - General Info Date of Service: 08/18/19 - Delivery Note Labor: Induced by Oxytocin Cervical Ripening Method: Misoprostil Delivery Outcome: Livebirth Delivery Method: Spontaneous Vaginal Delivery-Single Presentation: Left Occiput Anterior (RUFINA) Nuchal Cord: None Prep: Other Anesthesia Type: Epidural Amniotic Fluid Description: Meconium Stained Episiotomy Type: None Laceration: None Placenta: Intact, Spontaneous Cord: 3 Vessels Estimated Blood Loss: 200 Resuscitation Needed: No Score 1 min: 8 Score 5 min: 9 Delivery Comments (Free Text/Narrative):: liveborn female - General Info Date of Service: 08/18/19 - Patient Data Weight - Most Recent: 94.347 kg Lab Results Last 24 Hours: Laboratory Results - last 24 hr 08/18/19 08/18/19 08/18/19 Range/Units 00:35 00:35 00:40 WBC 8.83 (4.0-11.0) K/uL RBC 4.10 L (4.30-5.90) M/uL Hgb 12.2 (12.0-16.0) g/dL Hct 37.4 (36.0-46.0) % MCV 91.2 (80.0-98.0) fL MCH 29.8 (27.0-32.0) pg MCHC 32.6 (31.0-37.0) g/dL RDW Std Deviation 44.7 (28.0-62.0) fl RDW Coeff of Rasheed 14 (11.0-15.0) % Plt Count 224 (150-400) K/uL MPV 9.90 (7.40-12.00) fL SARS-CoV-2 RNA (RT-PCR) NEGATIVE (NEGATIVE) Blood Type A POSITIVE Antibody Screen NEGATIVE Med Orders - Current: Current Medications Butorphanol Tartrate (Stadol) 1 mg IVPUSH Q1H PRN PRN Reason: Pain Carboprost Tromethamine (Hemabate Ds) 250 mcg IM ASDIRECTED PRN PRN Reason: Post Hemorrhage Oxytocin/Sodium Chloride (Oxytocin 30 Unit/500 Ml-Ns) 30 unit in 500 mls @ 500 mls/hr IV TITRATE MATILDE Tranexamic Acid 1,000 mg/ (Sodium Chloride) 110 mls @ 660 mls/hr IV ONETIME PRN PRN Reason: Bleeding Lactated Ringer's (Ringers, Lactated) 1,000 mls @ 150 mls/hr IV ASDIRECTED MATILDE Last Infusion: 08/18/19 17:36 Dose: 150 mls/hr Documented by: Oxytocin/Sodium Chloride (Oxytocin 30 Unit/500 Ml-Ns) 30 unit in 500 mls @ 2 mls/hr IV TITRATE MATILDE; Protocol Last Titration: 08/18/19 17:32 Dose: 2 munits/min, 2 mls/hr Documented by: Lidocaine HCl (Xylocaine 1%) 50 ml INJECT ONETIME PRN PRN Reason: Laceration repair Methylergonovine Maleate (Methergine) 0.2 mg IM ASDIRECTED PRN PRN Reason: Post Hemorrhage Misoprostol (Cytotec) 200 mcg PO ONETIME PRN PRN Reason: Post Hemorrhage Misoprostol (Cytotec) 25 mcg VAG ONETIME PRN PRN Reason: Cervical Ripening Misoprostol (Cytotec) 25 mcg VAG Q6H PRN PRN Reason: Cervical Ripening Last Admin: 08/18/19 06:59 Dose: 25 mcg Documented by: Nalbuphine HCl (Nubain) 10 mg IVPUSH Q1H PRN PRN Reason: Pain (severe 7-10) Sodium Chloride (Saline Flush) 10 ml FLUSH ASDIRECTED PRN PRN Reason: Keep Vein Open Sodium Chloride (Saline Flush) 2.5 ml FLUSH ASDIRECTED PRN PRN Reason: Keep Vein Open Sodium Chloride (Normal Saline) 10 ml IV ASDIRECTED PRN PRN Reason: IV Use Sterile Water (Sterile Water For Irrigation) 1,000 ml IRR ASDIRECTED PRN PRN Reason: delivery Terbutaline Sulfate (Brethine) 0.25 mg SUBCUT ASDIRECTED PRN PRN Reason: Tacysystole Discontinued Medications Ephedrine Sulfate (Ephedrine Sulfate) Confirm Administered Dose 50 mg .ROUTE .STK-MED ONE Stop: 08/18/19 16:47 Oxytocin/Sodium Chloride (Oxytocin 30 Unit/500 Ml-Ns) Confirm Administered Dose 30 unit in 500 mls @ as directed .ROUTE .STK-MED ONE Stop: 08/18/19 06:14 Fentanyl/Bupivacaine HCl (Fentanyl/Bupivacaine/Ns 2 Mcg-0.125% 250 Ml) Confirm Administered Dose 250 mls @ as directed .ROUTE .STJymob-MED ONE Stop: 08/18/19 16:02 Ondansetron HCl (Zofran) Confirm Administered Dose 4 mg .ROUTE .STK-MED ONE Stop: 08/18/19 18:13 Oxytocin (Pitocin) Confirm Administered Dose 20 unit .ROUTE .STK-MED ONE Stop: 08/18/19 18:12 - Problem List & Annotations (1) Polyhydramnios SNOMED Code(s): 79903682 Code(s): O40.9XX0 - POLYHYDRAMNIOS, UNSP TRIMESTER, NOT APPLICABLE OR UNSP Status: Acute Current Visit: Yes (2) Vaginal delivery SNOMED Code(s): 958564715 Code(s): O80 - ENCOUNTER FOR FULL-TERM UNCOMPLICATED DELIVERY Status: Acute Current Visit: No - Problem List Review Problem List Initiated/Reviewed/Updated: Yes - My Orders Last 24 Hours: My Active Orders 08/18/19 00:01 Patient Status [ADT] Routine 08/18/19 00:15 Heart Tones [RC] CONTINUOUS Non Stress Test [RC] PER UNIT ROUTINE May Shower [RC] ASDIRECTED Notify Provider [RC] PRN Up ad Savita [RC] ASDIRECTED Vaginal Exam [RC] PRN Vital Signs [RC] PER UNIT ROUTINE Butorphanol [Stadol] 1 mg IVPUSH Q1H PRN Carboprost Tromethamine [Hemabate DS] 250 mcg IM ASDIRECTED PRN Lactated Ringers [Ringers, Lactated] 1,000 ml IV ASDIRECTED Lidocaine 1% [Xylocaine 1%] 50 ml INJECT ONETIME PRN Methylergonovine [Methergine] 0.2 mg IM ASDIRECTED PRN Nalbuphine [Nubain] 10 mg IVPUSH Q1H PRN Oxytocin/0.9 % Sodium Chloride [Oxytocin 30 Unit/500 ML-NS] 30 unit in 500 ml IV TITRATE Sodium Chloride 0.9% [Normal Saline] 10 ml IV ASDIRECTED PRN Sodium Chloride 0.9% [Saline Flush] 10 ml FLUSH ASDIRECTED PRN Sodium Chloride 0.9% [Saline Flush] 2.5 ml FLUSH ASDIRECTED PRN Tranexamic Acid [Cyklokapron] 1,000 mg Sodium Chloride 0.9% [Normal Saline] 100 ml IV ONETIME Water For Irrigation,Sterile [Sterile Water for Irrigation] 1,000 ml IRR ASDIRECTED PRN miSOPROStoL [Cytotec] 200 mcg PO ONETIME PRN Scalp Electrode [WOMSER] Per Unit Routine Peripheral IV Insertion Adult [OM.PC] Routine Resuscitation Status Routine 08/18/19 00:17 Communication Order [RC] ASDIRECTED Communication Order [RC] ASDIRECTED Communication Order [RC] ASDIRECTED Notify Provider [RC] PRN Notify Provider [RC] PRN Notify Provider [RC] STAT Oxygen Therapy [RC] ASDIRECTED Vaginal Exam [RC] PRN Terbutaline [Brethine] 0.25 mg SUBCUT ASDIRECTED PRN miSOPROStoL [Cytotec] 25 mcg VAG ONETIME PRN 08/18/19 00:30 Oxytocin/0.9 % Sodium Chloride [Oxytocin 30 Unit/500 ML-NS] 30 unit in 500 ml IV TITRATE Medication Administration Instruction [OM.PC] Q3H 08/18/19 00:35 RPR (SYPHILIS SERO) W/ RFLX [REF] Routine 08/18/19 01:00 miSOPROStoL [Cytotec] 25 mcg VAG Q6H PRN
[2019-08-18] MEDS ORDERED: Lanolin 100% Cream 7 GM Tube TOP PRN (18:47)
[2019-08-18] MEDS ORDERED: Ibuprofen 400 MG Tab PO PRN (18:47)
[2019-08-18] MEDS ORDERED: Witch Hazel Medicated Pads 40/Jar TOP PRN (18:47)
[2019-08-18] MEDS ORDERED: Ibuprofen 800 MG Tab PO PRN (18:47)
[2019-08-18] MEDS ORDERED: Benzocaine/Menthol 20%-0.5% Spray 78 GM Cannister TOP PRN (18:47)
[2019-08-18] MEDS ORDERED: Bisacodyl 10 MG Supp RECTAL PRN (18:47)
[2019-08-18] MEDS ORDERED: Docusate Sodium 100 MG Cap PO PRN (18:47)
--- NOTE | 2019-08-18 20:39 | OR ---
SURGEON: Diane Dueñas M.D. DATE OF PROCEDURE: 08/18/2019 PREOPERATIVE DIAGNOSES: A 39-6/7 weeks' intrauterine , polyhydramnios. POSTOPERATIVE DIAGNOSES: A 39-6/7 weeks' intrauterine , polyhydramnios. PROCEDURE: Cytotec and Pitocin induction of labor, term spontaneous vaginal delivery. PRIMARY SURGEON: Diane Dueñas MD USED CAR SALESPERSON: SOBEIDA Deluca. ANESTHESIA: Epidural. ESTIMATED BLOOD LOSS: Less than 200 mL. FINDINGS: Liveborn female, score of 8 and 9, weight is pending at the time of dictation. Placenta spontaneous, Schultze intact, with 3 vessels. Perineum intact. COMPLICATIONS: None known. DISPOSITION: Mother and baby are in LDR in good condition. BRIEF HISTORY: This is a 34-year-old female. She is G2, P 1-0-0-1, who presents at 39-6/7 weeks' gestation, fingertip thick, for induction of labor. She received 2 doses of Cytotec. Following the second dose of Cytotec, she was 2 cm, 60% effaced. Careful rupture of membranes was performed using an [place] trumpet and a needle. Slight old blood-tinged amniotic fluid was noted and later mild meconium. She was started on Pitocin. She received an epidural for pain control. Following the epidural, she had hypotension resulting in decelerations, which was resolved with Pitocin off, position change, and blood pressure assistance, and with this, she continued fairly rapidly thereafter to progress to 9+ cm with an anterior rim with marked variability and decelerations. Therefore, I was able to reduce the rim. I noted that the fetus was in a ROP position, and I was easily able with maternal pushing to rotate the baby to a EDA position and with this the cervix reduced on its own and then I allowed her to begin pushing. DESCRIPTION OF PROCEDURE: With the patient in dorsal lithotomy position, the patient pushed over five contractions to a 5+ station at which time the head was delivered spontaneously and atraumatically over the perineum with support with subsequent delivery of the 's shoulders and body without any difficulty. The was bulb suctioned by nose and mouth and handed to the mother in the presence of the nurse attending delivery. The was a liveborn female, score of 8 and 9, weight is pending at the time of dictation. After the cord had ceased to pulsate, it was doubly clamped and cut. Cord blood was collected for cord ABGs as well as routine cord blood sampling. Pitocin was initiated after delivery of the infant to assist with delivery of the placenta, which was delivered spontaneously, Schultze intact, with 3 vessels. Upon inspection of the pelvis and perineum, there were no periurethral, vaginal sidewall, cervical, rectal, or perineal lacerations. EBL was less than 200 mL. There were no known complications. Sponge, needle, and instrument counts were correct. Mother and baby remained in LDR in good condition. FARZANEH / DELGADO /[id number]
--- NOTE | 2019-08-18 20:56 | PCM48HPAN ---
Post Anesthesia Note - EVALUATION WITHIN 48HRS OF ANESTHETIC Vital Signs in Normal Range: Yes Patient Participated in Evaluation: Yes Respiratory Function Stable: Yes Airway Patent: Yes Cardiovascular Function Stable: Yes Hydration Status Stable: Yes Pain Control Satisfactory: Yes Nausea and Vomiting Control Satisfactory: Yes Mental Status Recovered: Yes - COMMENTS/OBSERVATIONS Free Text/Narrative:: Denies any complaints at this time.
--- NOTE | 2019-08-19 07:59 | PCM.PNPP ---
<JasonRamosDameon - Last Filed: 08/19/19 08:08> - General Info Date of Service: 08/19/19 Subjective Update: Carmen is doing well this morning. has been going well. She has minimal pain, well-controlled with ibuprofen. She has ambulated and voided urine without difficulty. She has moderate vaginal bleeding. No fevers or chills. She is hoping to be discharged today. Functional Status: Reports: Pain Controlled - Review of Systems General: Denies: Fever, Weakness, Chills HEENT: Reports: No Symptoms Pulmonary: Denies: Shortness of Breath, Cough Cardiovascular: Denies: Chest Pain, Palpitations Gastrointestinal: Reports: Constipation. Denies: Abdominal Pain, Diarrhea, Nausea, Vomiting Genitourinary: Reports: Burning. Denies: Incontinence, Hematuria, Flank Pain Musculoskeletal: Reports: No Symptoms Skin: Reports: No Symptoms Neurological: Denies: Dizziness, Headache, Difficulty Walking Psychiatric: Denies: Depression, Anxiety - General Info Date of Service: 08/19/19 - Patient Data Vital Signs - Most Recent: Last Vital Signs Temp 96.8 F L 08/19/19 04:38 Pulse 83 08/19/19 04:38 Resp 14 08/19/19 04:38 BP 108/62 08/19/19 04:38 Pulse Ox 95 08/19/19 04:38 Weight - Most Recent: 94.347 kg I&O - Last 24 Hours: Intake & Output 08/18/19 08/19/19 08/19/19 22:59 06:59 14:59 Intake Total 400 Output Total 400 Balance 0 Lab Results - Last 24 Hours: Laboratory Results - last 24 hr 08/18/19 08/19/19 Range/Units 18:22 06:03 Hgb 11.0 L (12.0-16.0) g/dL Hct 34.7 L (36.0-46.0) % Cord ABG pH 7.169 L (7.18-7.38) Cord ABG Base Excess -8 (-10--2) Cord VBG pH 7.247 L (7.25-7.45) Cord VBG Base Excess -8 (-10--2) Med Orders - Current: Current Medications Benzocaine/Menthol (Dermoplast Pain Relief 20%-0.5% [place]) 78 gm TOP ASDIRECTED PRN PRN Reason: Perineal Comfort Measure Bisacodyl (Dulcolax) 10 mg RECTAL ONETIME PRN PRN Reason: Constipation Docusate Sodium (Colace) 100 mg PO BID PRN PRN Reason: Constipation Emollient Ointment (Lansinoh Hpa) 0 gm TOP ASDIRECTED PRN PRN Reason: Sore Nipples Last Admin: 08/19/19 00:52 Dose: 1 tube Documented by: Tranexamic Acid 1,000 mg/ (Sodium Chloride) 110 mls @ 660 mls/hr IV ONETIME PRN PRN Reason: Bleeding Ibuprofen (Motrin) 400 mg PO Q4H PRN PRN Reason: Pain Ibuprofen (Motrin) 800 mg PO Q6H PRN PRN Reason: Pain Methylergonovine Maleate (Methergine) 0.2 mg IM ONETIME PRN PRN Reason: Excessive Vaginal Bleeding Witch Li (Tucks) 1 pad TOP ASDIRECTED PRN PRN Reason: comfort care Discontinued Medications Butorphanol Tartrate (Stadol) 1 mg IVPUSH Q1H PRN PRN Reason: Pain Carboprost Tromethamine (Hemabate Ds) 250 mcg IM ASDIRECTED PRN PRN Reason: Post Hemorrhage Ephedrine Sulfate (Ephedrine Sulfate) Confirm Administered Dose 50 mg .ROUTE .[facility]-MED ONE Stop: 08/18/19 16:47 Oxytocin/Sodium Chloride (Oxytocin 30 Unit/500 Ml-Ns) 30 unit in 500 mls @ 500 mls/hr IV TITRATE MATILDE Last Admin: 08/18/19 18:51 Dose: 500 mls/hr Documented by: Tranexamic Acid 1,000 mg/ (Sodium Chloride) 110 mls @ 660 mls/hr IV ONETIME PRN PRN Reason: Bleeding Lactated Ringer's (Ringers, Lactated) 1,000 mls @ 150 mls/hr IV ASDIRECTED [facility] Last Infusion: 08/18/19 17:36 Dose: 150 mls/hr Documented by: Oxytocin/Sodium Chloride (Oxytocin 30 Unit/500 Ml-Ns) 30 unit in 500 mls @ 2 mls/hr IV TITRATE MATILDE; Protocol Last Titration: 08/18/19 17:32 Dose: 2 munits/min, 2 mls/hr Documented by: Oxytocin/Sodium Chloride (Oxytocin 30 Unit/500 Ml-Ns) Confirm Administered Dose 30 unit in 500 mls @ as directed .ROUTE .[facility]-MED ONE Stop: 08/18/19 06:14 Fentanyl/Bupivacaine HCl (Fentanyl/Bupivacaine/Ns 2 Mcg-0.125% 250 Ml) Confirm Administered Dose 250 mls @ as directed .ROUTE .[facility]-MED ONE Stop: 08/18/19 16:02 Lidocaine HCl (Xylocaine 1%) 50 ml INJECT ONETIME PRN PRN Reason: Laceration repair Methylergonovine Maleate (Methergine) 0.2 mg IM ASDIRECTED PRN PRN Reason: Post Hemorrhage Misoprostol (Cytotec) 200 mcg PO ONETIME PRN PRN Reason: Post Hemorrhage Misoprostol (Cytotec) 25 mcg VAG ONETIME PRN PRN Reason: Cervical Ripening Misoprostol (Cytotec) 25 mcg VAG Q6H PRN PRN Reason: Cervical Ripening Last Admin: 08/18/19 06:59 Dose: 25 mcg Documented by: Nalbuphine HCl (Nubain) 10 mg IVPUSH Q1H PRN PRN Reason: Pain (severe 7-10) Ondansetron HCl (Zofran) Confirm Administered Dose 4 mg .ROUTE .[facility]-MED ONE Stop: 08/18/19 18:13 Oxytocin (Pitocin) Confirm Administered Dose 20 unit .ROUTE .[facility]-MED ONE Stop: 08/18/19 18:12 Sodium Chloride (Saline Flush) 10 ml FLUSH ASDIRECTED PRN PRN Reason: Keep Vein Open Sodium Chloride (Saline Flush) 2.5 ml FLUSH ASDIRECTED PRN PRN Reason: Keep Vein Open Sodium Chloride (Normal Saline) 10 ml IV ASDIRECTED PRN PRN Reason: IV Use Sterile Water (Sterile Water For Irrigation) 1,000 ml IRR ASDIRECTED PRN PRN Reason: delivery Last Admin: 08/18/19 18:52 Dose: 1,000 ml Documented by: Terbutaline Sulfate (Brethine) 0.25 mg SUBCUT ASDIRECTED PRN PRN Reason: Tacysystole - Interaction Support Person: - Exam General: Alert, Oriented, No Acute Distress HEENT: Pupils Equal, Pupils Reactive, EOMI Neck: Supple, Trachea Midline, No JVD Lungs: Clear to Auscultation, Normal Respiratory Effort. No: Crackles, Rales, Rhonchi Cardiovascular: Regular Rate, Regular Rhythm, No Murmurs. No: Gallops, Rubs GI/Abdominal Exam: Normal Bowel Sounds, Soft, Non-Tender, Other (Uterus firm at the level of the umbilicus) Extremities: Normal Inspection, Non-Tender, Pedal Edema (trace) Skin: Warm, Dry, Intact Neurological: No New Focal Deficit, Normal Speech, Normal Tone Psy/Mental Status: Alert, Normal Affect, Normal Mood - Problem List & Annotations (1) Vaginal delivery SNOMED Code(s): 425099206 Code(s): O80 - ENCOUNTER FOR FULL-TERM UNCOMPLICATED DELIVERY Status: Acute Current Visit: No - Problem List Review Problem List Initiated/Reviewed/Updated: Yes - Assessment Assessment:: Pt is 34yo PPD#1 s/p - Plan Plan:: Support decision Pain control as needed Monitor lochia Routine care Discharge at 24 hours <Diane Dueñas - Last Filed: 08/19/19 10:38> - Patient Data Vital Signs - Most Recent: Last Vital Signs Temp 36.3 C 08/19/19 08:09 Pulse 81 08/19/19 08:09 Resp 18 08/19/19 08:09 BP 110/57 L 08/19/19 08:09 Pulse Ox 96 08/19/19 08:09 I&O - Last 24 Hours: Intake & Output 08/18/19 08/19/19 08/19/19 22:59 06:59 14:59 Intake Total 400 Output Total 400 Balance 0 Lab Results - Last 24 Hours: Laboratory Results - last 24 hr 08/18/19 08/19/19 Range/Units 18:22 06:03 Hgb 11.0 L (12.0-16.0) g/dL Hct 34.7 L (36.0-46.0) % Cord ABG pH 7.169 L (7.18-7.38) Cord ABG Base Excess -8 (-10--2) Cord VBG pH 7.247 L (7.25-7.45) Cord VBG Base Excess -8 (-10--2) Med Orders - Current: Current Medications Benzocaine/Menthol (Dermoplast Pain Relief 20%-0.5% [place]) 78 gm TOP ASDIRECTED PRN PRN Reason: Perineal Comfort Measure Bisacodyl (Dulcolax) 10 mg RECTAL ONETIME PRN PRN Reason: Constipation Docusate Sodium (Colace) 100 mg PO BID PRN PRN Reason: Constipation Emollient Ointment (Lansinoh Hpa) 0 gm TOP ASDIRECTED PRN PRN Reason: Sore Nipples Last Admin: 08/19/19 00:52 Dose: 1 tube Documented by: Tranexamic Acid 1,000 mg/ (Sodium Chloride) 110 mls @ 660 mls/hr IV ONETIME PRN PRN Reason: Bleeding Ibuprofen (Motrin) 400 mg PO Q4H PRN PRN Reason: Pain Ibuprofen (Motrin) 800 mg PO Q6H PRN PRN Reason: Pain Methylergonovine Maleate (Methergine) 0.2 mg IM ONETIME PRN PRN Reason: Excessive Vaginal Bleeding Witch Li (Tucks) 1 pad TOP ASDIRECTED PRN PRN Reason: comfort care Discontinued Medications Butorphanol Tartrate (Stadol) 1 mg IVPUSH Q1H PRN PRN Reason: Pain Carboprost Tromethamine (Hemabate Ds) 250 mcg IM ASDIRECTED PRN PRN Reason: Post Hemorrhage Ephedrine Sulfate (Ephedrine Sulfate) Confirm Administered Dose 50 mg .ROUTE .[facility]-MED ONE Stop: 08/18/19 16:47 Oxytocin/Sodium Chloride (Oxytocin 30 Unit/500 Ml-Ns) 30 unit in 500 mls @ 500 mls/hr IV TITRATE MATILDE Last Admin: 08/18/19 18:51 Dose: 500 mls/hr Documented by: Tranexamic Acid 1,000 mg/ (Sodium Chloride) 110 mls @ 660 mls/hr IV ONETIME PRN PRN Reason: Bleeding Lactated Ringer's (Ringers, Lactated) 1,000 mls @ 150 mls/hr IV ASDIRECTED MATILDE Last Infusion: 08/18/19 17:36 Dose: 150 mls/hr Documented by: Oxytocin/Sodium Chloride (Oxytocin 30 Unit/500 Ml-Ns) 30 unit in 500 mls @ 2 mls/hr IV TITRATE MATILDE; Protocol Last Titration: 08/18/19 17:32 Dose: 2 munits/min, 2 mls/hr Documented by: Oxytocin/Sodium Chloride (Oxytocin 30 Unit/500 Ml-Ns) Confirm Administered Dose 30 unit in 500 mls @ as directed .ROUTE .[facility]-MED ONE Stop: 08/18/19 06:14 Fentanyl/Bupivacaine HCl (Fentanyl/Bupivacaine/Ns 2 Mcg-0.125% 250 Ml) Confirm Administered Dose 250 mls @ as directed .ROUTE .[facility]-MED ONE Stop: 08/18/19 16:02 Lidocaine HCl (Xylocaine 1%) 50 ml INJECT ONETIME PRN PRN Reason: Laceration repair Methylergonovine Maleate (Methergine) 0.2 mg IM ASDIRECTED PRN PRN Reason: Post Hemorrhage Misoprostol (Cytotec) 200 mcg PO ONETIME PRN PRN Reason: Post Hemorrhage Misoprostol (Cytotec) 25 mcg VAG ONETIME PRN PRN Reason: Cervical Ripening Misoprostol (Cytotec) 25 mcg VAG Q6H PRN PRN Reason: Cervical Ripening Last Admin: 08/18/19 06:59 Dose: 25 mcg Documented by: Nalbuphine HCl (Nubain) 10 mg IVPUSH Q1H PRN PRN Reason: Pain (severe 7-10) Ondansetron HCl (Zofran) Confirm Administered Dose 4 mg .ROUTE .[facility]-MED ONE Stop: 08/18/19 18:13 Oxytocin (Pitocin) Confirm Administered Dose 20 unit .ROUTE .[facility]-MED ONE Stop: 08/18/19 18:12 Sodium Chloride (Saline Flush) 10 ml FLUSH ASDIRECTED PRN PRN Reason: Keep Vein Open Sodium Chloride (Saline Flush) 2.5 ml FLUSH ASDIRECTED PRN PRN Reason: Keep Vein Open Sodium Chloride (Normal Saline) 10 ml IV ASDIRECTED PRN PRN Reason: IV Use Sterile Water (Sterile Water For Irrigation) 1,000 ml IRR ASDIRECTED PRN PRN Reason: delivery Last Admin: 08/18/19 18:52 Dose: 1,000 ml Documented by: Terbutaline Sulfate (Brethine) 0.25 mg SUBCUT ASDIRECTED PRN PRN Reason: Tacysystole - Problem List & Annotations (1) Polyhydramnios SNOMED Code(s): 15565514 Code(s): O40.9XX0 - POLYHYDRAMNIOS, UNSP TRIMESTER, NOT APPLICABLE OR UNSP Status: Acute Current Visit: Yes (2) Vaginal delivery SNOMED Code(s): 376656803 Code(s): O80 - ENCOUNTER FOR FULL-TERM UNCOMPLICATED DELIVERY Status: Acute Current Visit: No - My Orders Last 24 Hours: My Active Orders 08/18/19 Dinner Regular Diet [DIET] 08/18/19 18:47 Patient Status [ADT] Routine May Shower [RC] ASDIRECTED Up ad Savita [RC] ASDIRECTED Vital Signs [RC] PER UNIT ROUTINE Benzocaine/Menthol [Dermoplast Pain Relief 20%-0.5% [place]] 78 gm TOP ASDIRECTED PRN Docusate Sodium [Colace] 100 mg PO BID PRN Ibuprofen [Motrin] 400 mg PO Q4H PRN Ibuprofen [Motrin] 800 mg PO Q6H PRN Lanolin [Lansinoh HPA] See Dose Instructions TOP ASDIRECTED PRN Methylergonovine [Methergine] 0.2 mg IM ONETIME PRN Tranexamic Acid [Cyklokapron] 1,000 mg Sodium Chloride 0.9% [Normal Saline] 100 ml IV ONETIME bisacodyL [Dulcolax] 10 mg RECTAL ONETIME PRN witch Li [Tucks] 1 pad TOP ASDIRECTED PRN Assess Lochia [WOMSER] Per Unit Routine Assess Uterine Involution [WOMSER] Per Unit Routine Perineal Care [OM.PC] Per Unit Routine Peripheral IV Discontinue [OM.PC] Routine Resuscitation Status Routine - Plan Plan:: patient was seen and examined by me and I agree with above. Reviewed discharge orders. I also discussed mood, she is currently on sertraline and is doing well, she will call if she experiences worsening symptoms prior to her appt.
== END 2019-08-19 21:13 | disposition home or self-care (01) | DRG 560 ==
LOC: MW.OBCHECK → MW.OB 00:01 → MW.OBCHECK 00:01 → MW.OB 00:03 → OBSVTOIN 18:22 → MW.OB 21:41
PROVIDERS: ADMIT Obstetrics & Gynecology; ATTEND Obstetrics & Gynecology
PROC: 10E0XZZ Delivery of Products of Conception, External Approach (ICD-10-PCS; principal; 2019-08-18)
PROC: 10907ZC Drainage of Amniotic Fluid, Therapeutic from Products of Conception, Via Natural or Artificial Opening (ICD-10-PCS; 2019-08-18)
PROC: 3E033VJ Introduction of Other Hormone into Peripheral Vein, Percutaneous Approach (ICD-10-PCS; 2019-08-18)
PROC: 3E0P7VZ Introduction of Hormone into Female Reproductive, Via Natural or Artificial Opening (ICD-10-PCS; 2019-08-18)
PROC: 3E0R3BZ Introduction of Anesthetic Agent into Spinal Canal, Percutaneous Approach (ICD-10-PCS; 2019-08-18)
DX: O40.3XX0 Polyhydramnios, third trimester, not applicable or unspecified (principal); Z3A.39 39 weeks gestation of pregnancy; Z37.0 Single live birth; O77.0 Labor and delivery complicated by meconium in amniotic fluid; Z20.828 Contact with and (suspected) exposure to other viral communicable diseases
CPT/HCPCS: 36415; 51702; 59025; 59409; 82803; 85014; 85018; 85027; 86592; 86593; 86850; 86900; 86901; A9270-GY; J2405; J2590; J7120; U0002